=== PATIENT | male | born 1980 | race Caucasian/White ===

== ENCOUNTER 2017-03-14 22:46 | Emergency (ER) | payer OTHER ==
[~2017-03-14] VITALS: Ht 188 cm; Wt 65.8 kg
[2017-03-14] MEDS ORDERED: MELATONIN1 MG PO (23:32)
== END 2017-03-15 01:02 | disposition short-term general hospital (02) ==
LOC: ER 22:46
DX: I60.9 Nontraumatic subarachnoid hemorrhage, unspecified (principal); F17.210 Nicotine dependence, cigarettes, uncomplicated
CPT/HCPCS: G0477; J0330; J0461; J1170; J2250; J2405; J3010

== ENCOUNTER 2017-03-28 15:28 | Emergency (ER) | payer OTHER ==
[~2017-03-28] VITALS: Ht 190.5 cm; Wt 62.1 kg
[~2017-03-28 15:28] MED LIST: MELATONIN1 MG PO
== END 2017-03-28 17:30 | disposition short-term general hospital (02) ==
LOC: ER 15:28
DX: G03.9 Meningitis, unspecified (principal); F41.0 Panic disorder [episodic paroxysmal anxiety]; I60.9 Nontraumatic subarachnoid hemorrhage, unspecified; F43.10 Post-traumatic stress disorder, unspecified; F17.210 Nicotine dependence, cigarettes, uncomplicated; Z98.890 Other specified postprocedural states; Z79.899 Other long term (current) drug therapy
CPT/HCPCS: J2060; J2270

== ENCOUNTER 2017-03-31 18:02 | Emergency (ER) | payer OTHER ==
[~2017-03-31] VITALS: Ht 190.5 cm; Wt 61.2 kg
== END 2017-03-31 20:29 | disposition short-term general hospital (02) ==
LOC: ER 18:02
DX: R51 Headache (principal); E87.6 Hypokalemia; Z98.890 Other specified postprocedural states; F43.10 Post-traumatic stress disorder, unspecified; F17.210 Nicotine dependence, cigarettes, uncomplicated
CPT/HCPCS: J2060; J2270